=== PATIENT | male | born 1970 | race Caucasian/White ===

== ENCOUNTER 2016-10-14 16:20 | Observation (INO) | payer BC ==
--- NOTE | ~2016-10-14 | ST ---
Unit #: [id number] #: [id number] Patient: JEREMIAH VENEGAS [id number] [address] [place], [place] [address] [id number] I MR#: [id number] NAME: JEREMIAH VENEGAS : 1970 SEX: M STUDY DATE/TIME: UNIT: C5B ROOM: 559 STUDY DESCRIPTION: Stress Test Attending Physician: Abdiaziz Pedroza M.D. Primary Care Physician: Ebony Lara A.P.R.N. CARDIOLOGY REPORT EXAM Stress Test DESCRIPTION Baseline EKG - normal sinus rhythm with ventricular rate 84 beats/minute, left ventricular hypertrophy, left atrial abnormality. Patient walked on the treadmill for 11 minutes 30 seconds utilizing Mark protocol achieving a workload of 13.40 METs. 86% of maximum target heart rate achieved at 151 beats/minute with a maximum blood pressure response of 182/100 mmHg. EKG during the test was equivocal to baseline. No acute ischemic changes. The patient had no complaints of chest pain, palpitations or dizziness, had increased shortness of breath and fatigueness which resolved in recovery phase. IMPRESSION 1. Functional class III with workload of 13.40 METs. 2. Patient walked for 11 minutes 30 seconds achieving 86% of maximum target heart rate at 151 beats/minute with a hypertensive blood pressure response at 182/100 mmHg. 3. It was noted at the end of recovery phase patient's blood pressure decreased down to 149/90 mmHg. 4. The patient had no complaints of chest pain, palpitations or dizziness. Had increased shortness of breath and fatigueness which resolved in recovery phase. 5. EKG during the test was equivocal to baseline. No acute ischemic changes. 6. The patient had a good exercise tolerance. 7. Cardiolite was injected at maximum target heart rate. Radionuclide test pending. Please correlate with nuclear images. Dictated by... Letha MauroP.RTeresa for Renetta Kelley Unit #: [id number] #: [id number] Patient: JEREMIAH VENEGAS TD: 10/15/2016 13:23 JOB #: [id number] CARDIOLOGY REPORT Page 1 of 1 X Darlene Montes APRN CARDIOLOGY REPORT
--- NOTE | ~2016-10-14 | OR ---
Unit #: [id number] #: [id number] Patient: JEREMIAH VENEGAS [id number] [address] [place], [place] [address] [id number] I MR#: [id number] NAME: JEREMIAH VENEGAS ROOM: 55 Date of Procedure: 10/15/2016 Admission Date: 10/15/2016 Surgeon: Eugene Navas M.D. : 1970 Attending Physician: Abdiaziz Pedroza M.D. Primary Care Physician: Ebony Lara A.P.R.N. OPERATIVE REPORT PROCEDURE PERFORMED Esophagogastroduodenoscopy with biopsy. INDICATIONS FOR PROCEDURE The patient with atypical chest pain and epigastric pain, undergoing evaluation with upper endoscopy. MEDICATIONS Monitored anesthesia. POSTOPERATIVE FINDINGS 1. Small hiatal hernia. Mild chronic appearing gastritis, biopsies taken. 2. Normal duodenum and distal duodenum. PLAN 1. Follow up on the pathology report. 2. Continue PPI and reflux precautions. DESCRIPTION OF PROCEDURE The patient was explained of the procedure, risks, and benefits along with the risks and benefits of anesthesia. He was brought to the endoscopy room. Propofol anesthesia was given. Bite block was placed. The scope was passed down the mouth into the esophagus, stomach, duodenum, and distal duodenum. Findings as described. Biopsies taken. Gently, I pulled the scope out of the patient's mouth. He tolerated it well. No major complications were seen. Dictated by... Renetta Beck/brunilda TD: 10/15/2016 22:51 JOB #: [id number] CC: Soliseta/invision Please Delete Unit #: [id number] #: [id number] Patient: JEREMIAH VENEGAS OPERATIVE REPORT Page 1 of 1 X Eugene Navas MD X PROCEDURE OPERATIVE NOTE
--- NOTE | ~2016-10-14 | CT2 ---
[facility] A Service of [facility] RADIOLOGY TEXT RESULTS PATIENT: JEREMIAH VENEGAS LOCATION: [facility] : [birth year] UNIT #: [id number] AGE: [address]: Abdiaziz Pedroza MD SEX: M ORDER DR: [id number] [facility] [address] [facility]. [place], [place] [address] [id number] I MR#: [id number] Acc #: [id number] NAME: JEREMIAH VENEGAS : 1970 SEX: M STUDY DATE/TIME: 10/14/2016 20:34 UNIT: [facility] ROOM: [facility] STUDY DESCRIPTION: CT Abd and Pelv W Cont Attending Physician: Abdiaziz Pedroza M.D. Ordering Physician: Darek Torres D.O. Primary Care Physician: Ebony Lara A.P.R.N. MEDICAL IMAGING REPORT This report is preliminary unless electronic signature is present EXAM CT abdomen and pelvis with IV contrast. HISTORY Abdomen pain for 10 days. Low pelvic pain and left lower quadrant pain. TECHNIQUE This CT exam was performed with one or more of the following radiation dose reduction techniques: automatic exposure control, adjustment of mA and/or kV according to patient size, and iterative reconstruction. FINDINGS CT abdomen and pelvis was performed with IV contrast. CT ABDOMEN: The liver, gallbladder, spleen, pancreas, kidneys, and left adrenal gland are normal. 1.5 cm right adrenal adenoma. Normal caliber abdominal aorta. No bowel dilatation. No adenopathy. CT PELVIS: Normal appendix extending to the anterior right lower pelvis, adjacent to the distal right external iliac vessels. No bowel dilatation or inflammatory stranding or free fluid. Urinary bladder is normal. Bilateral spondylolysis at L5 with 2 mm anterior subluxation of L5 on S1. IMPRESSION 1. No acute findings in the abdomen or pelvis. 2. Normal appendix. 3. No urinary obstruction or bowel obstruction. 4. 1.5 cm right adrenal adenoma. 5. Incidental bilateral spondylolysis at L5 with minimal anterior [facility] A Service of [facility] RADIOLOGY TEXT RESULTS PATIENT: JEREMIAH VENEGAS LOCATION: [facility] 559-01 : [birth year] UNIT #: [id number] AGE: [address]: Abdiaziz Pedroza MD SEX: M ORDER DR: subluxation of L5 on S1. Dictated by... Richard Pichardo M.D. THIS IS AN ELECTRONICALLY VERIFIED REPORT Richard Pichardo M.D. at 10/15/2016 11:31 PM KYARA/vita TD: 10/15/2016 01:58 JOB #: [id number] MEDICAL IMAGING REPORT Page 1 of 1 COPY
--- NOTE | ~2016-10-14 | CR72 ---
[facility] A Service of [facility] RADIOLOGY TEXT RESULTS PATIENT: JEREMIAH VENEGAS LOCATION: [place] [address] : [birth year] UNIT #: [id number] AGE: [address]: Abdiaziz Pedroza MD SEX: M ORDER DR: [id number] [facility] [address] [place], [place] [address] [id number] I MR#: [id number] Acc #: [id number] NAME: JEREMIAH VENEGAS : 1970 SEX: M STUDY DATE/TIME: 10/14/2016 18:39 UNIT: CEDOF ROOM: 60403 STUDY DESCRIPTION: CR Chest Single View Portable Attending Physician: Abdiaziz Pedroza M.D. Ordering Physician: Darek Torres D.O. Primary Care Physician: Ebony Lara A.P.R.N. MEDICAL IMAGING REPORT This report is preliminary unless electronic signature is present EXAM Portable chest HISTORY Upper abdomen pain. Cough and shortness of air for 10 days. FINDINGS Cardiac size and pulmonary vascularity are normal. No airspace infiltrates or effusions. Mild right upper thoracic curve. IMPRESSION No acute findings. No active disease. Dictated by... Richard Pichardo M.D. THIS IS AN ELECTRONICALLY VERIFIED REPORT Richard Pichardo M.D. at 10/15/2016 11:29 PM DFL/anam TD: 10/15/2016 01:25 JOB #: [id number] MEDICAL IMAGING REPORT Page 1 of 1 COPY
--- NOTE | ~2016-10-14 | DS ---
Unit #: [id number] #: [id number] Patient: JEREMIAH VENEGAS [id number] [address] [place], [place] [address] [id number] I MR#: [id number] NAME: JEREMIAH VENEGAS ROOM: 559 Age: 46 Sex: M Admission Date: 10/15/2016 : 1970 Discharge Date: 10/16/2016 Attending Physician: Abdiaziz Pedroza M.D. Primary Care Physician: Ebony Lara A.P.R.N. DISCHARGE SUMMARY DISCHARGE DIAGNOSES 1. Gastritis. 2. Suspected coronary artery disease. 3. Abnormal Cardiolite scan. The patient is scheduled to have cardiac cath on Tuesday, October 20, with Dr. Caceres. CHIEF COMPLAINT/HISTORY OF PRESENT ILLNESS Presented with chest pain. Stress test was done and recommended to have a cardiac cath as an outpatient. He will follow, apparently stable on exam today. PHYSICAL EXAMINATION VITAL SIGNS: Temperature 98, pulse 67, respirations 12, blood pressure 130/70. NEUROLOGICAL: Awake, alert, oriented. No neuro deficit. HEENT: PERRLA. NECK: Supple. No JVD. CHEST: Bilateral air entry, bilateral mild rhonchi. GI: Nontender, soft. Bowel sounds positive. EXTREMITIES: No edema. SKIN: No rashes, no ulcers. LYMPHATIC: No lymphadenopathy. DIAGNOSTIC STUDIES Labs and imaging have been reviewed. DISCHARGE MEDICATIONS As per Med Rec. The patient will follow with Dr. Caceres on October 20 for cardiac catheterization. All the information has been relayed to the patient. Please see discharge Med Rec and hospital progress note for details. Dictated by... Renetta Rock/kayla TD: 10/17/2016 08:24 JOB #: [id number] Unit #: [id number] #: [id number] Patient: JEREMIAH VENEGAS DISCHARGE SUMMARY Page 1 of 1 X Lavinia Mortensen MD DISCHARGE SUMMARY
--- NOTE | ~2016-10-14 | CO ---
Unit #: [id number] #: [id number] Patient: JEREMIAH NOBLE [id number] [address] [place], [place] [address] [id number] I MR#: [id number] NAME: JEREMIAH NOBLE ROOM: 559 Age: 46 Sex: M Admission Date: 10/15/2016 : 1970 Attending Physician: Abdiaziz Pedroza M.D. Primary Care Physician: Ebony Lara A.P.R.N. CONSULTATION REPORT HISTORY OF PRESENT ILLNESS This is a 46-year-old white male, who denies diabetes mellitus, hypertension, hyperlipidemia, who has history of bipolar disorder, is on Zoloft and Seroquel, and also nicotine abuse, reformed alcohol use, came to the emergency room with lower abdominal pain that radiating up to the lower rib cage area. He describes it as sharp shooting at times and sometimes waxing and waning. On exam and interview palpating the area, it is tender to touch in the lower rib cage area. He denies any substernal chest pain in the neck, bilateral shoulders, or back pain, or jaw pain. He has not had any fever or chills. He denies any nausea, vomiting, or diarrhea; though, he does have some belching. He denies any palpitations. No dizziness, presyncope, or syncope. No paroxysmal nocturnal dyspnea or orthopnea. Cardiology was consulted to assist with evaluation and management. PAST MEDICAL HISTORY 1. Bipolar disorder. 2. Depression. 3. Nicotine abuse. 4. Stress test 2 years ago according to the patient, told was normal. 5. Reformed alcohol abuse. PAST SURGICAL HISTORY Left hand surgery. HOME MEDICATIONS Zoloft 100 mg p.o. at bedtime, Seroquel 100 mg p.o. at bedtime. ALLERGIES No known drug allergies. SOCIAL HISTORY The patient lives in apartment alone. 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 He follows closely with a psychiatrist for his bipolar disorder. He is down to smoking one pack of cigarettes a day. He had been smoking up to 2 packs a day. He has been smoking since age of 18. He used to drink heavily, but quit about 10 years ago. No illicit drug abuse. FAMILY HISTORY No known coronary artery disease in his immediate family members. REVIEW OF SYSTEMS Unit #: [id number] #: [id number] Patient: JEREMIAH NOBLE See details in HPI. PHYSICAL EXAMINATION GENERAL: Mr. Noble is a 46-year-old white male, in no acute respiratory distress. He is awake, alert, and oriented. VITAL SIGNS: Blood pressure is 127/56, heart rate 80, respirations 16, temperature 99, O2 saturations 97% on room air. NECK: Trachea midline. No thyromegaly or lymphadenopathy. Normal carotid upstrokes. No jugular venous distention. HEART: S1, S2. Regular rate and rhythm. No clicks, murmurs, or rubs. LUNGS: Diminished, otherwise clear. ABDOMEN: Soft with tender palpating especially in the lower rib cage area, upper quadrant areas. EXTREMITIES: Pedal pulses are palpable. No pedal edema. DIAGNOSTIC STUDIES LABORATORY RESULTS: Glucose is 93, BUN 13, creatinine 0.7, eGFR is 114. Sodium 134, potassium 3.9, chloride 107, CO2 of 18, calcium is 9.4, total protein 7.9, albumin 4.1, bilirubin total 0.4, AST is 18, ALT is 16, alkaline phosphatase is 58. WBC is 12.3, hemoglobin 16.7, hematocrit 50.0, and platelets is 375. Initial cardiac enzymes; CK-MB is less than 1.0. Troponin less than 0.05. CK total is 310, MB is 1.9, percentage of MB is 0.6, and troponin less than 0.03, CK total is 237, MB is 1.9, percentage of MB is 0.6, and troponin less than 0.03. INR is 1.0. D-dimer 387. Urinalysis is unremarkable. IMAGING STUDIES: Chest x-ray shows nothing acute. No active disease. CT of abdomen and pelvis shows nothing acute. No urinary obstruction or bowel obstruction. 1.5 cm right adrenal adenoma and some spondylosis. CARDIOVASCULAR STUDIES: EKG shows normal sinus rhythm with ventricular rate 73 beats per minute. Slow R-wave progression. Slightly prolonged QT. IMPRESSION 1. Abdominal pain. 2. Atypical lower chest pain. 3. Bipolar disorder. 4. Nicotine abuse. 5. Reformed alcohol abuse. PLAN 1. Cardiology consult to assist with evaluation and management. 2. On interview and exam, the symptoms appear more gastrointestinal or musculoskeletal in nature. According to the patient, he has been lifting over 50 pounds boxes at work and he may be showing some musculoskeletal tenderness since that time. 3. The patient's heart rate and blood pressure are stable. 4. On exam, there is no signs or symptoms of acute congestive heart failure. 5. Gastroenterology, Dr. Navas has seen the patient and plans are for an esophagogastroduodenoscopy today. Started on Protonix. 6. After Dr. Caceres examined and reviewed his records, he feels that even though his symptoms are more atypical in nature, with his long history of drinking and having nicotine abuse, we would go ahead and do an exercise Cardiolite stress test for further evaluation. 7. We will evaluate his ejection fraction on the stress test. If it is abnormal, may need a 2D echo since he has history of alcohol use. Unit #: [id number] #: [id number] Patient: JEREMIAH NOBLE 8. Further recommendations pending further testing. 9. I encouraged the patient to completely quit smoking. Smoking cessation information provided to the patient. I also encouraged the patient no alcohol use. He says he still drinks occasional beer. Thank you very much for allowing us to assist in the care. Further recommendations pending per Dr. Caceres. Dictated by... Letha MauroPPipoRTeresa for Renetta Newby/brunilda TD: 10/16/2016 06:37 JOB #: [id number] CONSULTATION REPORT Page 1 of 1 X Darlene Montes APRN X CONSULTATION REPORT
--- NOTE | ~2016-10-14 | TH ---
Unit #: [id number] #: [id number] Patient: JEREMIAH VENEGAS [id number] [address] [address] [id number] I MR#: [id number] NAME: JEREMIAH VENEGAS : 1970 SEX: M STUDY DATE/TIME: 10/15/2016 UNIT: C5B ROOM: 559 STUDY DESCRIPTION: Exercise stress test - Nuclear Attending Physician: Abdiaziz Pedroza M.D. Primary Care Physician: Ebony Lara A.P.R.N. CARDIOLOGY REPORT PROCEDURE PERFORMED Exercise Cardiolite stress test - Nuclear portion. PROCEDURE Using technetium 99m-labeled Cardiolite, rest and stress SPECT images were obtained. Multiple SPECT images were obtained in various views, including horizontal and vertical long axis and short axis views of the left ventricle. Images were obtained by gated SPECT method. The patient was administered 8.88 mCi of Cardiolite at rest. The patient was administered 28.4 mCi of Cardiolite at peak exercise. Total exercise time is 11 minutes and 30 seconds. On the stress images, there is a medium sized area of moderately decreased tracer uptake activity involving the inferior and the inferoseptal wall. The rest images show a normal perfusion. Comparing the rest and stress images, there is suspicion for a medium sized area of stress-induced ischemia involving the inferior and the inferoseptal wall of the left ventricle. The left ventricular ejection fraction is calculated to be 59%. There is no focal wall motion abnormality seen. The left ventricular cavity is mildly dilated both at rest and post stress. CONCLUSION 1. There is suspicion for a medium sized area of stress-induced ischemia involving the inferior and the inferoseptal wall of the left ventricle. 2. The left ventricular ejection fraction is calculated to be 59%. 3. There is no focal wall motion abnormality seen. 4. Though the patient exercised for 10 minutes and 30 seconds with no symptoms, his nuclear portion of the test is suggestive of coronary artery disease. Clinical correlation is requested. Dictated by... Renetta Kelley TD: 10/15/2016 15:51 JOB #: [id number] Unit #: [id number] #: [id number] Patient: JEREMIAH VENEGAS CARDIOLOGY REPORT Page 1 of 1 X Vera Maldonado MD <ELECTRONICALLY SIGNED> 12/25/16 4063 CARDIOLOGY REPORT
--- NOTE | ~2016-10-14 | EKG ---
PATIENT: JEREMIAH VENEGAS UNIT #: [id number] Ventricular Rate: 73 BPM Atrial Rate: 73 BPM P-R Interval: 122 ms QRS Duration: 84 ms Q-T Interval: 440 ms QTC Calculation(Bezet): 484 ms P Bellamy: 73 degrees Calculated R Bellamy: 75 degrees Calculated T Bellamy: 72 degrees Diagnosis Line: Normal sinus rhythm with sinus arrhythmia Diagnosis Line: Prolonged QT Early repolarization Diagnosis Line: Abnormal ECG Diagnosis Line: When compared with ECG of 24-DEC-2015 19:07, Diagnosis Line: No significant change was found Diagnosis Line: Confirmed by AYAN REESE MD ([id number]) on 10/15/2016 Diagnosis Line: 8:07:30 PM INTERPRETING MD: HUGH LORENZO
--- NOTE | ~2016-10-14 | CO ---
Unit #: [id number] #: [id number] Patient: JEREMIAH VENEGAS [id number] [address] [place], [place] [address] [id number] I MR#: [id number] NAME: JEREMIAH VENEGAS ROOM: 559 Age: 46 Sex: M Admission Date: 10/15/2016 : 1970 Attending Physician: Abdiaziz Pedroza M.D. Primary Care Physician: Ebony Lara A.P.R.N. CONSULTATION REPORT REASON FOR CONSULTATION Atypical chest pain. HISTORY OF PRESENT ILLNESS The patient states he was in usual state of health until last Tuesday, where he began to have intermittent upper abdominal and chest pain, which felt like a gas fullness or pressure. He tried taking jagh-oic-rmpwpha Gas-X without relief and subsequently presented to the ER yesterday for further workup and evaluation. CT in the ER was negative for any acute findings. Troponin thus far has been negative as well. The patient denies any nausea, vomiting, difficulty swallowing, really asymptomatic besides this chest pain, pressure. PAST MEDICAL HISTORY Notable for bipolar; skin cancer; arthritis; family history of colon cancer, his father at the young age of colon cancer and previous surgery on his thumb. ALLERGIES None known. HOME MEDICATIONS Zoloft and Seroquel. SOCIAL HISTORY The patient denies alcohol or illicit drugs; however, he is a smoker. FAMILY HISTORY Reviewed. Notable for father with colon cancer. REVIEW OF SYSTEMS A complete 10-point review of systems was completed and negative except as mentioned in the HPI. PHYSICAL EXAMINATION GENERAL: The patient is a very pleasant 46-year-old male, currently in no acute distress. VITAL SIGNS: Temperature is 99, pulse is 81, respirations 16, blood pressure is 127/56. HEENT: PERRLA. NECK: Supple. CARDIAC: S1, S2. LUNGS: Clear to auscultation. ABDOMEN: Soft, rounded, mild epigastric tenderness. Positive bowel Unit #: [id number] #: [id number] Patient: JEREMIAH VENEGAS sounds. NEUROLOGIC: The patient is alert, awake, and oriented x3. DIAGNOSTIC STUDIES IMAGING STUDIES: CT of abdomen and pelvis was completed. No acute findings were noted. LABORATORY RESULTS: Chemistry also negative. Again, troponin was negative. White count 12.3, hemoglobin 16.7, hematocrit 50, platelets are 375. ASSESSMENT AND PLAN 1. Atypical chest pain, epigastric pain. We will start PPI. We will plan esophagogastroduodenoscopy today. Continue n.p.o. status. Further recommendations to follow. 2. Family history of colon cancer. The patient states he is due for his colon screening this year. We will plan that as an outpatient. Thank you for this interesting consult. We will continue to follow along. Dictated by... Tatianna De La Cruz A.P.R.N. for Renetta Beck/brunilda TD: 10/16/2016 04:47 JOB #: [id number] CONSULTATION REPORT Page 1 of 1 X X CONSULTATION REPORT
--- NOTE | ~2016-10-14 | HP ---
Unit #: [id number] #: [id number] Patient: JEREMIAH NOBLE [id number] [address] [place], [place] [address] [id number] I MR#: [id number] NAME: JEREMIAH NOBLE ROOM: 559 Age: 46 Sex: M Admission Date: 10/15/2016 : 1970 Attending Physician: Abdiaziz Pedroza M.D. Primary Care Physician: Ebony Lara A.P.R.N. HISTORY AND PHYSICAL ADMISSION DIAGNOSES 1. Atypical chest pain. 2. Bipolar disorder. 3. Depression. 4. Leukocytosis. HISTORY OF PRESENT ILLNESS Mr. Noble is a 46-year-old gentleman, who presents to the emergency room with complaints of heavy sensation in substernal/epigastric area for last four or five days which is intermittent in nature. Does not radiate to any other parts of the body. He denies any shortness of air. Denies any fevers, chills. He denies any diaphoresis, nausea, vomiting, diarrhea, or abdominal pain. Denies any headache, dizziness, or syncopal episodes. REVIEW OF SYSTEMS A 12-point review of systems on this patient basically negative except as above. PAST MEDICAL HISTORY 1. Bipolar disorder. 2. Depression. PAST SURGICAL HISTORY None. HOME MEDICATIONS He was taking Zoloft and Seroquel. ALLERGIES No known drug allergies. SOCIAL HISTORY He is a heavy smoker. Drinks alcohol socially now. Denies any illicit drugs. FAMILY HISTORY Unremarkable. PHYSICAL EXAMINATION GENERAL: Patient is a 46-year-old gentleman in no acute distress. VITAL SIGNS: BP 133/93, heart rate 74, respirations 18, temperature 99.7. HEENT: Head is atraumatic. Pupils equal, round, and reactive to light and accommodation. Extraocular muscles intact. Oropharynx clear. Unit #: [id number] #: [id number] Patient: JREEMIAH NOBLE NECK: Supple. No masses. No JVD. No bruits. CHEST: Diminished bilaterally at the bases but generally clear. CARDIOVASCULAR: S1, S2. No murmurs. ABDOMEN: Soft, nontender, nondistended. EXTREMITIES: Lower extremities: Without any cyanosis, clubbing, or edema. NEUROLOGIC: The patient is grossly intact. No focal deficits. DIAGNOSTIC STUDIES LABORATORY: CBC, BMP, and coagulation panel including the cardiac enzymes unremarkable except white count of 12,000. IMAGING: Chest x-ray negative. CT abdomen shows some adrenal adenoma, otherwise unremarkable. CARDIOVASCULAR: Preliminary results of the stress test which was done per cardiology shows a small defect. A full report is currently unavailable yet. ASSESSMENT AND PLAN 1. Atypical chest pain, status post cardiology evaluation. Followup on full stress test report. May need the cardiac cath. As a workup for his atypical chest pain/epigastric chest pain, patient also is going to have an esophagogastroduodenoscopy per GI. 2. Depression: Continue home meds. 3. Bipolar disorder: Continue home meds. 4. Gastrointestinal and deep venous thrombosis prophylaxis: Continue proton pump inhibitor and sequential compression devices. 5. Leukocytosis: Will check procalcitonin level, follow up on CBC in a.m. Dictated by Jonel Ramirez M.D. OC/jones TD: 10/15/2016 15:40 JOB #: [id number] HISTORY AND PHYSICAL Page 1 of 1 X Jonel Ramirez MD HISTORY AND PHYSICAL
[~2016-10-14 16:20] MED LIST: ATARAX; CELEXA; DIAZEPAM10 MG; ENBREL50 MG/ML; ENBREL50 MG/ML PO; QUETIAPINE FUM100 MG; ROBAXIN 750750 MG PO; SEROQUEL; SERTRALINE HCL100 M1; VOLTAREN75 MG PO; ZYPREXA
[2016-10-14 17:03] LABS: BASOPHIL# 0.1 X10e3 (0-0.3); BASOPHIL% 0.9 % (0-2.5); EOSINOPHIL# 0.3 X10e3 (0-0.7); EOSINOPHIL% 2.4 % (0.0-7.0); HEMOGLOBIN 16.7 gm/dL (13.0-16.0); LYMPHOCYTE% 24.4 % (17.0-45.0); MEAN CELL VOLUME 94.7 FL (83-96); MEAN CORPUSCULAR HEMOGLOBIN 31.6 PG (28-34); MEAN CORPUSCULAR HGB CONC 33.3 g/dL (30-36); MEAN PLATELET VOLUME 7.3 FL (6.5-11.5); MONOCYTE# 1.2 X10e3 (0-1.0); MONOCYTE% 9.9 % (3.0-12.0); NEUTROPHIL# 7.7 X10e3 (1.5-7.1); NEUTROPHIL% 62.4 % (40-75); PLATELET COUNT 375 X10e3 (140-420); RED BLOOD COUNT 5.28 X10e (3.90-5.60); RED CELL DISTRIBUTION WIDTH 12.9 % (11.0-15.5); WHITE BLOOD COUNT 12.3 X10e3 (4.0-10.5)
[2016-10-14 17:17] LABS: DIFF IND NO
[2016-10-14 17:30] LABS: ALBUMIN SERUM 4.1 g/dL (3.5-5.0); BILIRUBIN, DIRECT 0.1 mg/dL (0.0-0.2); BILIRUBIN,INDIRECT 0.3 mg/dL (0.0-0.9); BILIRUBIN,TOTAL 0.4 mg/dL (0.2-2.0); BUN/CREATININE RATIO 18.57; CALCIUM SERUM 9.4 mg/dL (8.4-10.2); CREATININE SERUM 0.7 mg/dL (0.6-1.4); POTASSIUM 3.9 mmol/L (3.5-5.1); PROTEIN TOTAL SERUM 7.9 g/dL (6.0-8.3)
[2016-10-14 18:22] LABS: URINE SOURCE CLEAN CATCH
[2016-10-14 18:31] LABS: URINE APPEARANCE CLEAR; URINE BILIRUBIN NEG (NEG); URINE BLOOD NEG (NEG); URINE COLOR YELLOW; URINE GLUCOSE NEG (NEG); URINE KETONE NEG (NEG); URINE LEUKOCYTE ESTERASE NEG (NEG); URINE NITRATE NEG (NEG); URINE PROTEIN NEG (NEG); URINE SPECIFIC GRAVITY 1.018 (1.003-1.035)
[2016-10-14 18:41] LABS: CULTURE INDICATED? NO
[2016-10-14 18:51] LABS: PARTIAL THROMBOPLASTIN TIME 31.7 SECONDS (23.5-31.3); PROTHROMBIN TIME (PATIENT) 10.4 SECONDS (9.6-11.5)
[2016-10-14 19:04] LABS: POC - CKMB <1.0 ng/mL (0.0-7.9); POC - TROPONIN <0.05 ng/mL (<=0.05)
[2016-10-14 21:28] LABS: ARTERIAL BLD GAS O2 SATURATION 83.9 % (90.0-100.0); ARTERIAL BLOOD GAS CARBOXY HB 2.6 %sat (0.0-9.0); ARTERIAL BLOOD GAS HCO3 19.5 mmol/L; ARTERIAL BLOOD GAS MET HB 0.8 %sat (0.0-2.0); ARTERIAL BLOOD GAS PCO2 30.8 mmHg (35.0-45.0); ARTERIAL BLOOD GAS pH 7.411 (7.350-7.450)
[2016-10-14 21:34] LABS: ARTERIAL BLOOD GAS ART SITE LEFT BRACHIAL; ARTERIAL BLOOD GAS PO2 51.9 mmHg (80.0-100); ARTERIAL DRAW? YES
[2016-10-14] MEDS ORDERED: ZOLOFT100 MG PO (22:37)
[2016-10-14] MEDS ORDERED: SEROQUEL100 MG PO (22:38)
[2016-10-14 23:08] LABS: ARTERIAL BLD GAS O2 SATURATION 95.6 % (90.0-100.0); ARTERIAL BLOOD GAS CARBOXY HB 1.8 %sat (0.0-9.0); ARTERIAL BLOOD GAS MET HB 0.7 %sat (0.0-2.0); ARTERIAL BLOOD GAS PCO2 31.3 mmHg (35.0-45.0); ARTERIAL BLOOD GAS pH 7.393 (7.350-7.450)
[2016-10-14 23:09] LABS: ARTERIAL BLOOD GAS ALLEN TEST NORMAL; ARTERIAL BLOOD GAS ART SITE RIGHT RADIAL; ARTERIAL DRAW? YES
[2016-10-15 02:46] LABS: %MB 0.6 % (0.0-4.0); MB 1.9 ng/ml
[2016-10-15 11:47] LABS: %MB 0.6 % (0.0-4.0); MB 1.5 ng/ml
[2016-10-15 12:13] LABS: CHOLESTEROL 171 mg/dL (0-200); HDL CHOLESTEROL 38 mg/dL (29-75); LDL CHOLESTEROL 113 mg/dL (-130); LDL/HDL RATIO 3 RATIO (0-4); TRIGLYCERIDES 99 mg/dL (10-160)
[2016-10-15 14:46] LABS: %MB 0.6 % (0.0-4.0); MB 1.3 ng/ml
[2016-10-16 06:55] LABS: HEMOGLOBIN 16.9 gm/dL (13.0-16.0); MEAN CELL VOLUME 94.5 FL (83-96); MEAN CORPUSCULAR HEMOGLOBIN 31.2 PG (28-34); MEAN PLATELET VOLUME 7.1 FL (6.5-11.5); RED BLOOD COUNT 5.4 X10e (3.90-5.60); RED CELL DISTRIBUTION WIDTH 12.7 % (11.0-15.5)
[2016-10-16] MEDS ORDERED: TENORMIN25 MG PO (17:09)
[2016-10-16] MEDS ORDERED: LIPITOR20 MG PO (17:10)
[2016-10-16] MEDS ORDERED: IMDUR-ER30 M1 PO (17:11)
[2016-10-16] MEDS ORDERED: BAYER CHEWABLE81 MG PO (17:11)
[2016-10-20] MEDS ORDERED: FAMOTIDINE PO (11:17)
[2016-11-24] MEDS ORDERED: PROTONIX40 M1 PO (09:38)
[2016-12-15] MEDS ORDERED: ZOFRAN ODT4 M1 PO (09:09)
[2016-12-15] MEDS ORDERED: VALIUM10 MG PO (09:09)
[2016-12-15] MEDS ORDERED: ENDOCET 5-3251 EACH PO (09:10)
== END 2016-10-16 19:30 | disposition home or self-care (01) | DRG 392 ==
LOC: CED 16:20 → CEDOF 10-15 → CED 10-15 00:14 → C5B 10-15 01:26 → CEDOF 10-15 01:26 → C5B 10-16 19:30
PROVIDERS: Emergency Medicine; Internal Medicine
DX: K29.50 Unspecified chronic gastritis without bleeding (principal); R07.89 Other chest pain; K44.9 Diaphragmatic hernia without obstruction or gangrene; Z80.0 Family history of malignant neoplasm of digestive organs; F31.9 Bipolar disorder, unspecified; F32.9 Major depressive disorder, single episode, unspecified; D72.829 Elevated white blood cell count, unspecified; Z23 Encounter for immunization; F17.200 Nicotine dependence, unspecified, uncomplicated; D35.01 Benign neoplasm of right adrenal gland; M43.06 Spondylolysis, lumbar region
CPT/HCPCS: 36415; 36600; 71010; 74177; 78452; 80048; 80061; 80076; 81003; 82308; 82550; 82553; 82803; 83690; 84443; 84484; 85025; 85027; 85379; 85610; 85730; 88305; 88312; 90732; 93005; 93017; 94760; 96361; 96372; 96374; 96375; 96376; 99285; A9500; C9113; G0009; G0378; J0500; Q9967

== ENCOUNTER → 2016-10-20 | Outpatient (CLI) | payer BC ==
[~2016-10-20] MED LIST changes: +BAYER CHEWABLE81 MG PO; +ENDOCET 5-3251 EACH PO; +FAMOTIDINE PO; +IMDUR-ER30 M1 PO; +LIPITOR20 MG PO; +PERCOCET10 PO; +PROTONIX PO; +PROTONIX40 M1 PO; +SEROQUEL100 MG PO; +TENORMIN25 MG PO; +VALIUM10 MG PO; +ZOFRAN ODT4 M1 PO; +ZOFRAN PO; +ZOLOFT100 MG PO
--- NOTE | ~2016-10-20 | EKG ---
PATIENT: JEREMIAH VENEGAS UNIT #: [id number] Ventricular Rate: 65 BPM Atrial Rate: 65 BPM P-R Interval: 116 ms QRS Duration: 86 ms Q-T Interval: 452 ms QTC Calculation(Bezet): 470 ms P Royal: 77 degrees Calculated R Royal: 71 degrees Calculated T Royal: 73 degrees Diagnosis Line: Normal sinus rhythm Diagnosis Line: Normal ECG Diagnosis Line: When compared with ECG of 14-OCT-2016 20:59, Diagnosis Line: No significant change was found Diagnosis Line: Confirmed by MICHAEL POZO MD ([id number]) on 10/20/2016 Diagnosis Line: 11:06:57 PM INTERPRETING MD: NOHELIA LORENZO
[2016-10-20 11:17] LABS: HEMATOCRIT 50.7 % (38.0-50.0); HEMOGLOBIN 16.9 gm/dL (13.0-16.0); MEAN CELL VOLUME 93.6 FL (83-96); MEAN CORPUSCULAR HEMOGLOBIN 31.3 PG (28-34); MEAN CORPUSCULAR HGB CONC 33.4 g/dL (30-36); MEAN PLATELET VOLUME 7.2 FL (6.5-11.5); RED BLOOD COUNT 5.42 X10e (3.90-5.60); RED CELL DISTRIBUTION WIDTH 12.9 % (11.0-15.5); WHITE BLOOD COUNT 14.6 X10e3 (4.0-10.5)
[2016-10-20 11:38] LABS: PARTIAL THROMBOPLASTIN TIME 31.9 SECONDS (23.5-31.3); PROTHROMBIN TIME (PATIENT) 10.6 SECONDS (9.6-11.5)
[2016-10-20 11:41] LABS: BUN/CREATININE RATIO 13.33; CALCIUM SERUM 9.4 mg/dL (8.4-10.2); CREATININE SERUM 0.6 mg/dL (0.6-1.4); GLOM FILT RATE Estimated 121.5 mL/min (>60); POTASSIUM 3.8 mmol/L (3.5-5.1)
== END | disposition home or self-care (01) ==
LOC: CCVL 10:32
PROVIDERS: Internal Medicine Cardiovascular Disease
DX: R07.9 Chest pain, unspecified (principal); R94.39 Abnormal result of other cardiovascular function study
CPT/HCPCS: 36415; 80048; 85027; 85610; 85730; 93005; C1769; C1887; C1894; J1644; J2250; J3010

== ENCOUNTER → 2016-11-17 | Outpatient (CLI) | payer BC ==
--- NOTE | ~2016-11-17 | CT2 ---
[facility] A Service of [facility] & [facility] RADIOLOGY TEXT RESULTS PATIENT: JEREMIAH VENEGAS LOCATION: [facility] : 72 UNIT #: [id number] AGE: [address]: Reynold Erwin MD SEX: M ORDER DR: [id number] [facility] [address] [facility]. [place], [place] [address] [id number] O MR#: [id number] [facility] #: [id number] NAME: JEREMIAH VENEGAS : 1970 SEX: M STUDY DATE/TIME: 11/17/2016 14:41 UNIT: [facility] ROOM: STUDY DESCRIPTION: CT Abd and Pelv W Cont Attending Physician: Reynold Erwin M.D. Referring Physician: Reynold Erwin M.D. Ordering Physician: Reynold Erwin M.D. Primary Care Physician: Ebony Lara A.P.R.N. MEDICAL IMAGING REPORT This report is preliminary unless electronic signature is present EXAM CT abdomen and pelvis. INDICATION Left lower quadrant abdominal pain and constipation for [address] of the abdomen and pelvis with p.o. and IV contrast (100 mL Isovue-370 IV contrast). Coronal and sagittal reconstructions were obtained. This CT exam was performed with one or more of the following radiation dose reduction techniques: automatic exposure control, adjustment of mA and/or kV according to patient size, and iterative reconstruction. COMPARISON CT abdomen and pelvis, 10/14/2016. FINDINGS ABDOMEN: The patient has bilateral adrenal masses. The right adrenal mass measures 4.8 cm. This mass previously measured 1.5 cm and was low attenuation, thought to be an adrenal adenoma. A left adrenal mass measures 3.7 cm. There is no focal abnormality in the liver. The gallbladder, pancreas, and spleen are within normal limits. There is a new low attenuation mass in the superior pole right kidney measuring 0.8 cm. There is a 1.0 cm lesion in the inferior pole right kidney. These lesions were not previously identified. The bowel is not dilated. There is no enlarged retroperitoneal or mesenteric lymph nodes. The abdominal aorta is nonaneurysmal, however, it is small in caliber with the aorta measuring 1.1 cm. The iliac vessels are small measuring 0.6 cm on the left and 0.6 cm on the right. There is STS. [facility] A Service of [facility] & [facility] RADIOLOGY TEXT RESULTS PATIENT: JEREMIAH VENEGAS LOCATION: [facility] : 72 UNIT #: [id number] AGE: [address]: Reynold Erwin MD SEX: M ORDER DR: moderate atherosclerotic disease of the iliac vessels. PELVIS: There is an abnormal cystic mass with peripheral enhancement in the region of the anterior inferior iliac spine. This is centralized within the left oblique musculature. This measures 3.9 x 1.9 x 2.4 cm. There is a second intramuscular mass associated with the adductor muscle group just above the lesser trochanter, measuring 2.8 x 2.1 x 2.8 cm. IMPRESSION 1. Development of necrotic or cystic lesions within both adrenal glands, the left external oblique muscle (near the anterior inferior iliac spine) and in the right abductor muscle group (near the right lesser trochanter). This is concerning for a malignant/metastatic process. Consider an ultrasound-guided biopsy of the palpable lesion in the left external oblique muscle. 2. Two small subcentimeter lesions in the right kidney have developed since the prior study. Given the overall appearance, this is concerning for metastatic disease as well, however, the small size limits evaluation. 3. Unexpected findings were called to Dr. Reynold Erwin at 1610 on 11/17/2016. Dictated by... Abiodun Strong M.D. THIS IS AN ELECTRONICALLY VERIFIED REPORT Abiodun Strong M.D. at 11/17/2016 6:42 PM MARKY/nicci TD: 11/17/2016 16:19 JOB #: [id number] MEDICAL IMAGING REPORT Page 1 of 1 COPY
== END | disposition home or self-care (01) ==
LOC: CCAT 13:25
DX: R19.09 Other intra-abdominal and pelvic swelling, mass and lump (principal); R22.2 Localized swelling, mass and lump, trunk; E27.8 Other specified disorders of adrenal gland; N28.89 Other specified disorders of kidney and ureter
CPT/HCPCS: 74177; Q9967

== ENCOUNTER → 2016-11-24 | Outpatient (CLI) | payer BC ==
--- NOTE | ~2016-11-24 | US147 ---
[facility] A Service of [facility] RADIOLOGY TEXT RESULTS PATIENT: JEREMIAH NOBLE [facility] 72 UNIT #: [id number] AGE: [address]: Reynold Erwin MD SEX: M ORDER DR: [id number] [facility] [address] [facility]. [place], [place] [address] [id number] O MR#: [id number] Acc #: [id number] NAME: JEREMIAH NOBLE : 1970 SEX: M STUDY DATE/TIME: 11/24/2016 10:33 UNIT: [facility] ROOM: STUDY DESCRIPTION: US Biopsy Guide Attending Physician: Reynold Erwin M.D. Referring Physician: Reynold Erwin M.D. Ordering Physician: Reynold Erwin M.D. Primary Care Physician: Ebony Lara A.P.R.N. MEDICAL IMAGING REPORT This report is preliminary unless electronic signature is present EXAM Ultrasound guided left external iliac chain node biopsy INDICATIONS Mr. Noble is a 46-year-old gentleman who presented to Dr. Erwin with complaints of painful nodule on the left lower quadrant. He subsequently underwent a CT scan of the abdomen and pelvis, which showed a necrotic node within the area of concern. He has been referred for biopsy. PROCEDURE The risks, benefits, and alternatives to the procedure were explained to the patient, and signed informed consent was obtained. He was placed supine on the stretcher. The patient was prepped and draped in the usual sterile fashion. Time-out was performed as per protocol. The ultrasound probe was covered with sterile probe cover sterile gel was applied. Skin and subcutaneous tissues were anesthetized with buffered lidocaine and an 18-gauge BioPince biopsy gun was advanced into the area of concern. A core sample was obtained, which showed somewhat scant material. I subsequently advanced an 18-gauge needle into the lesion and aspirated some of the fluid, which will be sent for cytology. Three additional passes were made through the node and specimens were placed in both formalin and Hanks material. Manual pressure was then applied until hemostasis was obtained. Patient tolerated the procedure well and there were no immediate complications. Light sedation was provided to the patient. I supervised the IVR nurse and monitored the patient's vital signs for a total of 15 minutes [id number] time. IMPRESSION Technically successful core biopsy and aspiration of the patient's left external iliac node. Ultrasound was used during this procedure and permanent images were saved. Dictated by... [facility] A Service of [facility] RADIOLOGY TEXT RESULTS PATIENT: JEREMIAH NOBLE [facility] [id number] : 72 UNIT #: [id number] AGE: [address]: Reynold Erwin MD SEX: M ORDER DR: Chen Bush M.D. THIS IS AN ELECTRONICALLY VERIFIED REPORT Chen Bush M.D. at 11/25/2016 4:41 PM AFF/to TD: 11/25/2016 12:44 JOB #: [id number] MEDICAL IMAGING REPORT Page 1 of 1 COPY
== END | disposition home or self-care (01) ==
LOC: CIVR 08:10 → CLAB 08:10 → CIVR 10:00
DX: C96.9 Malignant neoplasm of lymphoid, hematopoietic and related tissue, unspecified (principal)
CPT/HCPCS: 36415; 76942; 85027; 85610; 85730; 88108; 88305; 88342; J2250; J3010

== ENCOUNTER → 2016-12-15 | Outpatient (CLI) | payer BC ==
[2016-12-15 09:01] LABS: HEMATOCRIT 42.1 % (38.0-50.0); HEMOGLOBIN 13.9 gm/dL (13.0-16.0); MEAN CELL VOLUME 87.2 FL (83-96); MEAN CORPUSCULAR HEMOGLOBIN 28.7 PG (28-34); MEAN PLATELET VOLUME 6.6 FL (6.5-11.5); RED BLOOD COUNT 4.83 X10e (3.90-5.60); RED CELL DISTRIBUTION WIDTH 13.4 % (11.0-15.5); WHITE BLOOD COUNT 17.5 X10e3 (4.0-10.5)
[2016-12-15 09:11] LABS: INR 1.2; PARTIAL THROMBOPLASTIN TIME 32.3 SECONDS (23.5-31.3)
== END | disposition home or self-care (01) ==
LOC: CIVR 08:31
PROVIDERS: Internal Medicine Medical Oncology
PROC: 05HM33Z Insertion of Infusion Device into Right Internal Jugular Vein, Percutaneous Approach (ICD-10-PCS; principal; 2016-12-15)
DX: C00-D49 Neoplasms (principal); Z45.2 Encounter for adjustment and management of vascular access device
CPT/HCPCS: 36415; 76937; 77001; 85027; 85610; 85730; C1788; J0690; J1642; J2250; J3010

== ENCOUNTER 2017-01-01 09:52 | Emergency (ER) | payer BC ==
[~2017-01-01] VITALS: Ht 175.3 cm; Wt 51.7 kg
--- NOTE | ~2017-01-01 | CT4 ---
[facility] A Service of [facility] & [facility] RADIOLOGY TEXT RESULTS PATIENT: JEREMIAH VENEGAS LOCATION: [facility] : 72 UNIT #: [id number] AGE: [address]: Casey Garcia MD SEX: M ORDER DR: [id number] [facility] [address] [place], [place] [address] [id number] E MR#: [id number] Acc #: [id number] NAME: JEREMIAH VENEGAS : 1970 SEX: M STUDY DATE/TIME: 01/01/2017 12:39 UNIT: [facility] ROOM: STUDY DESCRIPTION: CT Abd and Pelv Wo Cont Attending Physician: Casey Garcia M.D. Ordering Physician: Casey Garcia M.D. Primary Care Physician: Ebony Lara A.P.R.N. MEDICAL IMAGING REPORT This report is preliminary unless electronic signature is present EXAM CT abdomen and pelvis without contrast HISTORY Lower abdomen pain constipation for 1 week. Chemotherapy treatments x2. COMPARISON 11/17/2016 TECHNIQUE Axial 3 mm images were obtained through the abdomen and pelvis without IV or oral contrast. This CT exam was performed with one or more of the following radiation dose reduction techniques: automatic control, adjustment of mA and/or kV according to patient size, and iterative reconstruction. FINDINGS Lung bases are clear. Patient has very little body fat. The liver, spleen, pancreas, and kidneys are normal in appearance. There is a right adrenal mass measuring about 7 x 5.5 cm and a left adrenal mass measuring about 5.7 x 4.0 cm. These measurements are on the axial images. Both masses are larger than on 11/17/2016. The aorta is normal in size. The bowel is normal. The bladder is distended. There is a low density lesion in the soft tissues of the anterior left pelvis. This appears somewhat cystic on this CT that measures 6.0 x 5.3 x 5.7 cm in size and has more than doubled in size since 11/17/2016 so it is presumably a metastatic deposit. There is a low density area medial to the left hip joint that has also increased significantly in size. This seems to be destroying the cortex which is a new finding. The abnormality is difficult to measure without contrast but it is at least 4 cm in diameter. IMPRESSION [facility] A Service of [facility] RADIOLOGY TEXT RESULTS PATIENT: JEREMIAH VENEGAS LOCATION: [facility] : 72 UNIT #: [id number] AGE: [address]: Casey Garcia MD SEX: M ORDER DR: 1. This patient has some type of malignancy that has been previously worked up. Today's study shows that the bilateral adrenal masses have significantly increased in size since 11/17/2016. There is also an abdominal wall mass in the left side of the pelvis anteriorly that is more than doubled in size and it is very low in density. There is also a mass medial to the right femoral neck and it has more than doubled in size and is now eroding some of the cortical bone adjacent to it. 2. Patient has very little body fat in a study without contrast is limited by that factor. 3. The bladder is distended. Dictated by... Oh Espinosa M.D. THIS IS AN ELECTRONICALLY VERIFIED REPORT Oh Espinosa M.D. at 01/02/2017 9:36 PM CAMPOS/anam TD: 01/02/2017 03:56 JOB #: [id number] MEDICAL IMAGING REPORT Page 1 of 1 COPY
[~2017-01-01 09:52] MED LIST changes: -PERCOCET10 PO; -PROTONIX PO; -ZOFRAN PO
[2017-01-01 11:01] LABS: BASOPHIL% 0.5 % (0-2.5); EOSINOPHIL% 0.2 % (0.0-7.0); HEMATOCRIT 28.6 % (38.0-50.0); HEMOGLOBIN 9.6 gm/dL (13.0-16.0); LYMPHOCYTE# 1.8 X10e3 (1.0-3.5); LYMPHOCYTE% 23.5 % (17.0-45.0); MEAN CELL VOLUME 82.5 FL (83-96); MEAN CORPUSCULAR HEMOGLOBIN 27.7 PG (28-34); MEAN CORPUSCULAR HGB CONC 33.6 g/dL (30-36); MEAN PLATELET VOLUME 6.5 FL (6.5-11.5); MONOCYTE# 0.7 X10e3 (0-1.0); MONOCYTE% 9.7 % (3.0-12.0); NEUTROPHIL% 66.1 % (40-75); PLATELET COUNT 279 X10e3 (140-420); RED BLOOD COUNT 3.47 X10e (3.90-5.60); RED CELL DISTRIBUTION WIDTH 14.2 % (11.0-15.5); WHITE BLOOD COUNT 7.5 X10e3 (4.0-10.5)
[2017-01-01 11:13] LABS: DIFF IND NO
[2017-01-01 11:39] LABS: ALBUMIN SERUM 2.6 g/dL (3.5-5.0); BILIRUBIN, DIRECT 0.2 mg/dL (0.0-0.2); BILIRUBIN,INDIRECT 0.6 mg/dL (0.0-0.9); BILIRUBIN,TOTAL 0.8 mg/dL (0.2-2.0); BUN/CREATININE RATIO 18.57; CALCIUM SERUM 9.3 mg/dL (8.4-10.2); CREATININE SERUM 0.7 mg/dL (0.6-1.4); PROTEIN TOTAL SERUM 6.7 g/dL (6.0-8.3)
[2017-01-01 14:02] LABS: URINE SOURCE CLEAN CATCH
[2017-01-01 14:14] LABS: URINE APPEARANCE CLOUDY; URINE BLOOD NEG (NEG); URINE COLOR DK YELLOW; URINE GLUCOSE NEG (NEG); URINE KETONE TRACE (NEG); URINE LEUKOCYTE ESTERASE 1+ (NEG); URINE NITRATE NEG (NEG); URINE PH 6.5 (5-8); URINE PROTEIN TRACE (NEG); URINE SPECIFIC GRAVITY 1.027 (1.003-1.035)
[2017-01-01 14:16] LABS: URINE BACTERIA AUWI NEG (NEGATIVE); URINE SQUAMOUS EPITHELIAL CELL NONE SEEN /[HPF]
[2017-01-01 14:25] LABS: URINE BILIRUBIN NEG (NEG)
[2017-01-01 14:26] LABS: CULTURE INDICATED? NO
== END 2017-01-01 14:15 | disposition home or self-care (01) ==
LOC: CED 09:52
DX: K59.00 Constipation, unspecified (principal); F17.200 Nicotine dependence, unspecified, uncomplicated; Z85.528 Personal history of other malignant neoplasm of kidney
CPT/HCPCS: 74176; 80048; 80076; 81003; 83690; 85025; 99284; J1170

== ENCOUNTER 2017-01-29 21:39 | Inpatient (IN) | payer BC ==
[~2017-01-29] VITALS: Ht 175.3 cm; Wt 44.0 kg
--- NOTE | ~2017-01-29 | CO ---
Unit #: [id number] #: [id number] Patient: JEREMIAH VENEGAS [id number] [address] [place], [place] [address] [id number] I MR#: [id number] NAME: JEREMIAH VENEGAS ROOM: [facility] Age: 46 Sex: M Admission Date: 01/29/2017 : 1970 Attending Physician: Jonel Ramirez M.D. Primary Care Physician: Ebony Lara A.P.R.N. Consultation Date: 01/31/2017 CONSULTATION REPORT PRIMARY CARE PHYSICIAN Jonel Ramirez M.D. REASON FOR EVALUATION Metastatic urothelial cancer, please evaluate. HISTORY OF PRESENT ILLNESS Patient is a 46-year-old gentleman whom we saw with stage IV disease three to four months ago, and it was biopsied on the left lower quadrant and proved to be urothelial carcinoma. He is status post two cycles of aggressive chemotherapy with evidence of progressive disease and failure to thrive. We were requested to evaluate. Looking at his past history, he had an episode of syncope at home, brought in, and had acute respiratory failure, depression, bipolar disorder, anemia of chronic disease, and metastatic urothelial carcinoma as stated above. FAMILY HISTORY Negative for atypical cancer. SOCIAL HISTORY Patient lives with a lady who has Power of [employer], and there is a 1-year-old child that they have decided to bring up together according to the lady. He was a heavy smoker and currently is a nonsmoker. CHRONIC MEDICATIONS 1. Zofran. 2. Percocet. 3. Zoloft. 4. Seroquel. 5. Protonix. ALLERGIES No known allergies. REVIEW OF SYSTEMS Very extensive, mainly unable to eat, severe constipation, tiredness, weakness, inability to ambulate at all and essentially bedridden, and chronic active pain. Otherwise, six or eight systems were within normal limits. PHYSICAL EXAMINATION GENERAL: Severely emaciated gentleman with severe muscle atrophy. Unit #: [id number] #: [id number] Patient: JEREMIAH VENEGAS LYMPHATICS: No supraclavicular, axillary, or groin nodes. LUNGS: Crackles. A few rales on the left side. CARDIOVASCULAR: Distant S1 and S2. ABDOMEN: There is a new nodule just below the umbilicus, and the left lower quadrant mass lesion is enlarging. LOWER EXTREMITIES: There is extreme atrophy of the muscles. IMPRESSION AND PLAN This 46-year-old gentleman who was diagnosed with stage IV urothelial carcinoma, status post two cycles of aggressive chemotherapy, with complete failure to thrive and poor performance status, presented after syncope. Today, I had a chance to interview him and his lady who has the Power of [employer] both together in the room. We went over all the findings, prognosis, and value of continuing aggressive measures versus value of supportive care, [facility], and comfort care, and there was a unanimous decision from both of them to be a Do Not Resuscitate and to do supportive care only. So I am going to call [facility] and will inform the primary care physicians of this decision. Dictated by... Joe Ford M.D. MAYO/reji TD: 01/31/2017 21:03 JOB #: [id number] CONSULTATION REPORT Page 1 of 1 X Joe Ford MD X CONSULTATION REPORT
--- NOTE | ~2017-01-29 | CR72 ---
[facility] A Service of [facility] RADIOLOGY TEXT RESULTS PATIENT: JEREMIAH VENEGAS LOCATION: [place] [address] : 71 UNIT #: [id number] AGE: [address]: Jonel Ramirez MD SEX: M ORDER DR: [id number] [facility] [address] [facility]. [place], [place] [address] [id number] I MR#: [id number] Acc #: [id number] NAME: JEREMIAH VENEGAS : 1970 SEX: M STUDY DATE/TIME: 01/29/2017 22:01 UNIT: [facility] ROOM: [facility] STUDY DESCRIPTION: CR Chest Single View Portable Attending Physician: Jonel Ramirez M.D. Ordering Physician: Stephany Diaz M.D. Primary Care Physician: Ebony Lara A.P.R.N. MEDICAL IMAGING REPORT This report is preliminary unless electronic signature is present EXAM Portable chest, 01/29/2017 HISTORY 46-year-old male with shortness of air and cough beginning tonight. COMPARISON Chest 10/14/2016 FINDINGS 2 views of the chest demonstrate patchy infiltrates in the right mid and lower lung field most suggestive of pneumonia. Left lung clear. No pneumothorax. Right-sided Port-A-Cath. Heart size within normal limits. Mediastinum is slightly prominent compared to the prior study. Pulmonary vasculature unremarkable. IMPRESSION 1. Patchy infiltrates in the right mid and lower lung field most concerning for pneumonia. Followup to resolution recommended. 2. Interval placement of a right-sided Port-A-Cath. 3. Slight mediastinal prominence compared to prior study, nonspecific. Dictated by... Jacky Sigala M.D. THIS IS AN ELECTRONICALLY VERIFIED REPORT Jacky Sigala M.D. at 01/31/2017 10:44 AM NAKITA/kalyan TD: 01/30/2017 21:52 JOB #: [id number] [facility] A Service of [facility] RADIOLOGY TEXT RESULTS PATIENT: JEREMIAH VENEGAS LOCATION: [id number] : 72 UNIT #: [id number] AGE: [address]: Jonel Ramirez MD SEX: M ORDER DR: MEDICAL IMAGING REPORT Page 1 of 1 COPY
--- NOTE | ~2017-01-29 | HP ---
Unit #: [id number] #: [id number] Patient: JEREMIAH NOBLE [id number] [address] [address] [id number] I MR#: [id number] NAME: JEREMIAH NOBLE ROOM: [facility] Age: 46 Sex: M Admission Date: 01/29/2017 : 1970 Attending Physician: Jonel Ramirez M.D. Primary Care Physician: Ebony Lara A.P.R.N. HISTORY AND PHYSICAL ADMISSION DIAGNOSES 1. Acute respiratory failure. 2. Syncope. 3. Metastatic renal cancer. 4. Bipolar disorder. 5. Depression. 6. Hypoglycemia. 7. Anemia of chronic disease. HISTORY OF PRESENT ILLNESS Mr. Noble is a 46-year-old unfortunate gentleman who apparently was diagnosed with renal cancer with mets around two months ago. He apparently had two rounds of chemo, was brought to the emergency room yesterday after he suffered an episode when he passed out. He was found with acute respiratory failure. Initially, was put on BiPAP. However, he improved and currently doing better on the nasal Oxymizer. However, patient was seen by pulmonology and he expressed wishes to be a DNR so he is a DNR. On my interview with the patient and patient's family at the bedside, apparently patient still does want to seek an oncology opinion regarding continuation of the palliative chemo. He denies any chest pain, headache, dizziness, fever, chills, nausea, vomiting, diarrhea or abdominal pain. He was found hypoglycemic. Initially, was given some D50 and he is status post evaluation per endocrinology as well. Currently on D5 normal saline. REVIEW OF SYSTEMS Twelve point review of systems on this patient is basically negative except as above. PAST MEDICAL HISTORY Significant for: 1. History of bipolar disorder. 2. Depression. 3. Leukocytosis. 4. Renal cancer with the mets. SOCIAL HISTORY Apparently he was a heavy smoker. MEDICATIONS Home medications include: 1. Percocet 10's. 2. Zofran. 3. Zoloft. Unit #: [id number] #: [id number] Patient: JEREMIAH NOBLE 4. Protonix. 5. Seroquel. ALLERGIES No known drug allergies. FAMILY HISTORY Unremarkable. PHYSICAL EXAM The patient is an ill-appearing, cachectic 46-year-old gentleman, otherwise in no acute distress. VITAL SIGNS: Currently BP 95/52, heart rate 90, respirations 21, temperature 98.1. HEENT: Head is atraumatic. Pupils equal, round and reactive to light and accommodation. Extraocular muscles intact. Oropharynx clear. NECK: Supple. No masses, no JVD, no bruits. CHEST: Diminished bilaterally. CARDIOVASCULAR: S1, S2, no murmurs. ABDOMEN: Soft, nontender, nondistended. EXTREMITIES: Lower extremities without any cyanosis, clubbing or edema. NEUROLOGICAL: Patient without any focal deficits. LABS AND DIAGNOSTICS Chemistry significant for BUN and creatinine 39 and 0.4. Initial blood glucose again 44. Since then, its come up to 140s. K of 3.1. H and H 7.9 and 23.7, white count 4.4. Platelets 101. ASSESSMENT AND PLAN 1. Questionable syncope, most probably secondary to acute respiratory failure. 2. Pneumonia versus COPD exacerbation. Patient was started on the IV antibiotics per pulmonology. Continue bronchodilators. Follow up on chest x-ray. 3. Metastatic renal cancer, status post chemo x2. Follow up with the oncology regarding (1) benefits of palliative chemo at this point. Question comfort care and hospice but, again, will defer to oncology. 4. History of bipolar disorder. 5. Depression. 6. Anemia of chronic disease. 7. Hypoglycemia. Continue fluids with D5. 8. DNR status. 9. GI and DVT prophylaxis. PPI and Lovenox. 10. Hypokalemia, replace per protocol. Dictated by Renetta Rangel/kayla TD: 01/31/2017 05:37 JOB #: [id number] Unit #: [id number] #: [id number] Patient: JEREMIAH NOBLE HISTORY AND PHYSICAL Page 1 of 1 X Jonel Ramirez MD HISTORY AND PHYSICAL
--- NOTE | ~2017-01-29 | A ---
[facility] Nutrition Therapy DATE: 01/31/17 Patient: JEREMIAH VENEGAS Physician: ANÍBAL Address: [address] Room/Bed: [address], Zip: [place] [phone] Admit Date: 01/29/17 Date of : [birth year] Height: 5 9 Weight: 98 44.5 NUTRITIONAL ASSESSMENT: REASON: PT SEEN FOR LOW BMI + ONE NUTRITION RISK PT RE: POOR PO INTAKE, ALSO CONSULT RECEIVED PT IS 46 Y.O. MALE ADMITTED FOR RESPIRATORY FAILURE PMH: BIPLAR DISORDER, METASTATIC RENAL CA (DIAGNOSED 2 MONTHS AGO) S/P CHEMOTHERAPY, ?COPD, DEPRESSION Anthropometrics: 5'9", WT: 94-98# (43-45 KG), BMI: 13.9-14.5, 59%IBW-61%IBW Labs: BUN: 25, CREAT: 0.3, ALB: 2.0, MG+:1.5, K+:3.3, NA+:134 Meds: LEVOPHED, MIRALAX, PROTONIC, ZOFRAN, KCL, IV LEVAQUIN, NACL I/O & Bowel function: 3950/1552 Skin Integrity: NO KNOWN SKIN ISSUES Estimated Nutrition Needs: INCREASED NEEDS 2' PT UNDERWEIGHT, WEIGHT LOSS NOTED, PMH-CANCER Assessment: CHART REVIEWED AND EVENTS NOTED. PT SEEN FOR LOW BMI + POOR PO INTAKE, ALSO CONSULT RECEIVED. RD ATTEMPTED TO COMMUNICATE W/PT THIS AM BUT PT TOO SLEEPY & LETHARGIC. RN REPORTS PT TO BE CONFUSED THIS AM. PER [place] [facility], PT WEIGHED ~138-147# BACK IN OCTOBER 2016, RAPID WEIGHT LOSS NOTED SINCE. NOTES, POOR PROGNOSIS NOTED, ?PALLIATIVE CARE IN FUTURE. RD TO FOLLOW. SEE RECOMMENDATIONS BELOW. Dx: INADEQUATE PROTEIN-ENERGY INTAKE R/T PMH-CANCER, SUSPECTED DECREASE IN APPETITE AEB LOW BMI OF 13.9-14.5, 59-61%IBW, WEIGHT LOSS NOTED. Intervention: 1. REGULAR DIET 2. RD CONSULT 3. ENSURE SHAKES BID Monitoring, Evaluation and Goals: 1. ORAL INTAKE; CONSUME/TOLERATE >50% OF MEALS AND SUPPLEMENTS 2. WEIGHTS; PROMOTE GRADUAL WEIGHT GAIN TOWARDS HEALTHY BMI; PREVENT WEIGHT LOSS 3. LABS; WNL (PETE WNL) MONITOR: -PO INTAKE/APPETITE -WEIGHTS [facility] Nutrition Therapy DATE: 01/31/17 Patient: JEREMIAH VENEGAS Physician: ANÍBAL Address: [address] [place] [address] Room/Bed: [address], Zip: [place] [address] Admit Date: 01/29/17 Date of : [birth year] Height: 5 9 Weight: 98 44.5 -SUPPLEMENT INTAKE (CHANGE?) -LABS Recommendations: 1. CONTINUE CURRENT DIET ORDER ABOVE 2. ADD 6 SMALL MEALS TO CURRENT DIET ORDER TO BETTER FACILITATE PO INTAKE 3. PLEASE ORDER ENSURE SHAKES BID FOR ADDITIONAL PROTOTEIN AND KCAL 4. REPLACY LYTES PRN (K+ & MG+ LOW) 5. PLEASE WEIGH q 3 DAYS FOR MONITORING PURPOSES, PT CLINICALLY UNDERWEIGHT RD WILL F/U PER PROTOCOL PT IS MODERATELY COMPROMISED Respectfully, ÁNGELA HAMM MS, RD, LD [employer] [facility] cc: client file
--- NOTE | ~2017-01-29 | DS ---
Unit #: [id number] #: [id number] Patient: JEREMIAH VENEGAS [id number] [address] [address] [id number] I MR#: [id number] NAME: JEREMIAH VENEGAS ROOM: [facility] Age: 46 Sex: M Admission Date: 01/29/2017 : 1970 Discharge Date: 02/01/2017 Attending Physician: Jonel Ramirez M.D. Primary Care Physician: Ebony Lara A.P.R.N. DISCHARGE SUMMARY DISCHARGE DIAGNOSES 1. Metastatic renal cancer. 2. Comfort care only. DISPOSITION Discharging to Hospice. HISTORY OF PRESENT HOSPITAL STAY/HOSPITAL COURSE Please refer to H and P done by me for initial presentation on this gentleman. He initially basically presented with acute respiratory failure and was intubated, then extubated. Was cared for in the ICU with pressors secondary to sepsis and hypotension. Was seen in consultation by patrol sergeant, Dr. Fallon Gould, along with the primary oncologist, Dr. Ford. After discussing with Dr. Ford, patient was made hospice/comfort care only and today is transitioning to hospice care. Dictated by... Renetta Rangel/reji TD: 02/01/2017 19:42 JOB #: [id number] DISCHARGE SUMMARY Page 1 of 1 X Jonel Ramirez MD X DISCHARGE SUMMARY
--- NOTE | ~2017-01-29 | CR72 ---
[facility] A Service of [facility] RADIOLOGY TEXT RESULTS PATIENT: JEREMIAH VENEGAS LOCATION: [place] [address] : [birth year] UNIT #: [id number] AGE: [address]: Jonel Ramirez MD SEX: M ORDER DR: [id number] [facility] [address] [facility]. [place], [place] [address] [id number] I MR#: [id number] Acc #: [id number] NAME: JEREMIAH VENEGAS : 1970 SEX: M STUDY DATE/TIME: 01/31/2017 5:19 UNIT: [facility] ROOM: [facility] STUDY DESCRIPTION: CR Chest Single View Portable Attending Physician: Jonel Ramirez M.D. Ordering Physician: Lavinia Mortensen M.D. Primary Care Physician: Ebony Lara A.P.R.N. MEDICAL IMAGING REPORT This report is preliminary unless electronic signature is present EXAM Portable chest HISTORY Shortness of air for 2 days. FINDINGS There is increased density in the right base compared to 01/29/2017. This is most likely focal infiltrate and could be secondary to pneumonia. Superimposed atelectasis may also be present in the right base. Hyperinflation of both lungs. Stable prominence of the right hilum. Remainder of the chest is unchanged. Dictated by... Richard Pichardo M.D. THIS IS AN ELECTRONICALLY VERIFIED REPORT Richard Pichardo M.D. at 01/31/2017 10:31 PM KYARA/moustapha TD: 01/31/2017 12:45 JOB #: [id number] MEDICAL IMAGING REPORT Page 1 of 1 COPY
--- NOTE | ~2017-01-29 | CO ---
Unit #: [id number] #: [id number] Patient: JEREMIAH VENEGAS [id number] [address] [address] [id number] I MR#: [id number] NAME: JEREMIAH VENEGAS ROOM: [facility] Age: 46 Sex: M Admission Date: 01/29/2017 : 1970 Attending Physician: Jonel Ramirez M.D. Primary Care Physician: Ebony Lara A.P.R.N. Consultation Date: 01/29/2017 CONSULTATION REPORT CHIEF COMPLAINT Hypoglycemia. Altered mental status. REASON FOR CONSULTATION Critical care management. HISTORY OF PRESENT ILLNESS This patient basically is a 45-year-old male who has a history of metastatic adenocarcinoma and presents with the complaint of altered mental status and shortness of breath. He was found to be hypoxic and hypoglycemic. He was admitted with possible impression of sepsis. I am seeing the patient at the bedside. He is complaining of mild shortness of breath. He is currently awake and alert, but is confused. PAST MEDICAL HISTORY 1. Metastatic cancer. 2. Bipolar disorder. 3. Depression. 4. Likely chronic obstructive pulmonary disease. SOCIAL HISTORY Heavy smoker in the past. Drinks alcohol socially. Used to drink alcohol socially. CURRENT MEDICATIONS As per MAR. Has been reviewed. REVIEW OF SYSTEMS Positive pallor. No edema. No cyanosis or jaundice. The rest is as per history of present illness. The rest of the review of systems has been reviewed and is negative. PHYSICAL EXAMINATION VITALS: Current temperature is 97, pulse 91, blood pressure 102/62. LUNGS: Bilateral air entry. Bilateral mild rhonchi. HEART: S1 plus S2. ABDOMEN: Soft. There are multiple palpable masses. EXTREMITIES: No edema. NEUROLOGIC: Awake, but confused. DIAGNOSTIC STUDIES LABORATORY: Blood gas, pH 7.40, pCO2 40, pO2 86. BUN 39, creatinine 0.4, potassium 3.1, white blood cell count 4, hemoglobin 7, hematocrit 23, platelets 101. Unit #: [id number] #: [id number] Patient: JEREMIAH VENEGAS ASSESSMENT 1. Hypoglycemia. 2. Shock, requiring pressors. 3. Sepsis present on admission. 4. Cachexia. 5. Malignancy. 6. Associated likely chronic obstructive pulmonary disease. PLAN At this point the plan is to continue the patient on broad spectrum IV antibiotics. Continue oxygen, bronchodilator, stress dose steroids already started. The patient will be closely monitored. Please see orders for detailed plan. Thank you very much for this consultation. Will continue to monitor the patient very closely. PROGNOSIS Prognosis is poor. Dictated by... Renetta Rock TD: 01/30/2017 13:56 JOB #: [id number] CONSULTATION REPORT Page 1 of 1 X Lavinia Mortensen MD X CONSULTATION REPORT
[2017-01-29 22:01] LABS: ARTERIAL BLD GAS O2 SATURATION 94.3 % (90.0-100.0); ARTERIAL BLOOD GAS CARBOXY HB 1.6 %sat (0.0-9.0); ARTERIAL BLOOD GAS HCO3 24.8 mmol/L; ARTERIAL BLOOD GAS MET HB 0.7 %sat (0.0-2.0); ARTERIAL BLOOD GAS PCO2 40.1 mmHg (35.0-45.0); ARTERIAL BLOOD GAS PO2 86.1 mmHg (80.0-100)
[2017-01-29 22:02] LABS: ARTERIAL BLOOD GAS ART SITE RIGHT FEMORAL; ARTERIAL BLOOD GAS DELIVERY NON REBREATHER MASK; ARTERIAL DRAW? YES
[2017-01-29 22:54] LABS: BASOPHIL% 0.3 % (0-2.5); EOSINOPHIL% 0.3 % (0.0-7.0); HEMATOCRIT 23.7 % (38.0-50.0); HEMOGLOBIN 7.8 gm/dL (13.0-16.0); LYMPHOCYTE# 1.2 X10e3 (1.0-3.5); LYMPHOCYTE% 13.1 % (17.0-45.0); MEAN CELL VOLUME 81.1 FL (83-96); MEAN CORPUSCULAR HEMOGLOBIN 26.9 PG (28-34); MEAN CORPUSCULAR HGB CONC 33.1 g/dL (30-36); MEAN PLATELET VOLUME 6.8 FL (6.5-11.5); MONOCYTE# 0.1 X10e3 (0-1.0); MONOCYTE% 0.7 % (3.0-12.0); NEUTROPHIL# 8.2 X10e3 (1.5-7.1); NEUTROPHIL% 85.6 % (40-75); PLATELET COUNT 110 X10e3 (140-420); RED BLOOD COUNT 2.92 X10e (3.90-5.60); RED CELL DISTRIBUTION WIDTH 16.5 % (11.0-15.5); WHITE BLOOD COUNT 9.5 X10e3 (4.0-10.5)
[2017-01-29 22:57] LABS: DIFF IND YES
[2017-01-29 23:18] LABS: CALCIUM SERUM 10.4 mg/dL (8.4-10.2); CREATININE SERUM 0.4 mg/dL (0.6-1.4); GLOM FILT RATE Estimated 143.5 mL/min (>60); POTASSIUM 3.1 mmol/L (3.5-5.1)
[2017-01-29 23:32] LABS: ANISOCYTOSIS SL
[2017-01-29 23:35] LABS: PLATELET ESTIMATE DECREASED (NORMAL)
[2017-01-30] MEDS ORDERED: PERCOCET10 PO (03:11)
[2017-01-30] MEDS ORDERED: ZOFRAN PO (03:12)
[2017-01-30] MEDS ORDERED: ZOLOFT100 MG PO (03:13)
[2017-01-30] MEDS ORDERED: PROTONIX PO (03:13)
[2017-01-30] MEDS ORDERED: SEROQUEL100 MG PO (03:14)
[2017-01-30 05:16] LABS: BASOPHIL% 0.2 % (0-2.5); EOSINOPHIL% 0.2 % (0.0-7.0); HEMATOCRIT 23.7 % (38.0-50.0); HEMOGLOBIN 7.9 gm/dL (13.0-16.0); LYMPHOCYTE# 1.1 X10e3 (1.0-3.5); MEAN CELL VOLUME 80.5 FL (83-96); MEAN CORPUSCULAR HEMOGLOBIN 26.8 PG (28-34); MEAN CORPUSCULAR HGB CONC 33.2 g/dL (30-36); MEAN PLATELET VOLUME 6.8 FL (6.5-11.5); MONOCYTE# 0.1 X10e3 (0-1.0); MONOCYTE% 1.3 % (3.0-12.0); NEUTROPHIL# 3.3 X10e3 (1.5-7.1); NEUTROPHIL% 74.3 % (40-75); PLATELET COUNT 101 X10e3 (140-420); RED BLOOD COUNT 2.95 X10e (3.90-5.60); RED CELL DISTRIBUTION WIDTH 16.6 % (11.0-15.5)
[2017-01-30 05:33] LABS: DIFF IND NO; WHITE BLOOD COUNT 4.4 X10e3 (4.0-10.5)
[2017-01-30 05:51] LABS: BUN/CREATININE RATIO 97.5; CALCIUM SERUM 10.2 mg/dL (8.4-10.2); CREATININE SERUM 0.4 mg/dL (0.6-1.4); GLOM FILT RATE Estimated 143.5 mL/min (>60); POTASSIUM 3.1 mmol/L (3.5-5.1)
[2017-01-31 04:17] LABS: ARTERIAL BLD GAS O2 SATURATION 97.2 % (90.0-100.0); ARTERIAL BLOOD GAS CARBOXY HB 0.8 %sat (0.0-9.0); ARTERIAL BLOOD GAS HCO3 22.3 mmol/L; ARTERIAL BLOOD GAS MET HB 1.5 %sat (0.0-2.0); ARTERIAL BLOOD GAS PCO2 31.2 mmHg (35.0-45.0); ARTERIAL BLOOD GAS pH 7.463 (7.350-7.450)
[2017-01-31 04:30] LABS: ARTERIAL BLOOD GAS ALLEN TEST NORMAL; ARTERIAL BLOOD GAS ART SITE RIGHT RADIAL; ARTERIAL BLOOD GAS DELIVERY OXYMIZER; ARTERIAL DRAW? YES
[2017-01-31 06:17] LABS: BASOPHIL% 0.1 % (0-2.5); HEMATOCRIT 18.9 % (38.0-50.0); LYMPHOCYTE# 0.8 X10e3 (1.0-3.5); LYMPHOCYTE% 17.7 % (17.0-45.0); MEAN CELL VOLUME 80.7 FL (83-96); MEAN CORPUSCULAR HEMOGLOBIN 26.4 PG (28-34); MEAN CORPUSCULAR HGB CONC 32.8 g/dL (30-36); MEAN PLATELET VOLUME 6.6 FL (6.5-11.5); MONOCYTE# 0.2 X10e3 (0-1.0); MONOCYTE% 3.7 % (3.0-12.0); NEUTROPHIL# 3.7 X10e3 (1.5-7.1); NEUTROPHIL% 78.5 % (40-75); RED BLOOD COUNT 2.34 X10e (3.90-5.60); RED CELL DISTRIBUTION WIDTH 16.1 % (11.0-15.5); WHITE BLOOD COUNT 4.7 X10e3 (4.0-10.5)
[2017-01-31 06:19] LABS: HEMOGLOBIN 6.2 gm/dL (13.0-16.0); PLATELET COUNT 52 X10e3 (140-420)
[2017-01-31 06:20] LABS: DIFF IND YES
[2017-01-31 07:00] LABS: ANISOCYTOSIS SL; MICROCYTOSIS SL; PLATELET ESTIMATE DECREASED (NORMAL)
[2017-01-31 07:27] LABS: BILIRUBIN,TOTAL 0.7 mg/dL (0.2-2.0); BUN/CREATININE RATIO 83.33; CALCIUM SERUM 9.4 mg/dL (8.4-10.2); CREATININE SERUM 0.3 mg/dL (0.6-1.4); GLOM FILT RATE Estimated 161.5 mL/min (>60); POTASSIUM 3.3 mmol/L (3.5-5.1); PROTEIN TOTAL SERUM 5.5 g/dL (6.0-8.3)
[2017-02-01 10:03] LABS: HEMATOCRIT 22.4 % (38.0-50.0); HEMOGLOBIN 7.5 gm/dL (13.0-16.0); MEAN CELL VOLUME 82.3 FL (83-96); MEAN CORPUSCULAR HEMOGLOBIN 27.5 PG (28-34); MEAN CORPUSCULAR HGB CONC 33.4 g/dL (30-36); MEAN PLATELET VOLUME 7.1 FL (6.5-11.5); RED BLOOD COUNT 2.72 X10e (3.90-5.60); RED CELL DISTRIBUTION WIDTH 16.7 % (11.0-15.5)
[2017-02-01 10:10] LABS: WHITE BLOOD COUNT 8.3 X10e3 (4.0-10.5)
[2017-02-01 10:33] LABS: BLOOD UREA NITROGEN 19 mg/dL (9-23); CALCIUM SERUM 9.3 mg/dL (8.4-10.2); CARBON DIOXIDE 22 mmol/L (22-31); CHLORIDE 106 mmol/L (100-111); GLUCOSE FASTING 82 mg/dL (70-110); MAGNESIUM 1.5 mg/dL (1.6-3.0); PHOSPHOROUS 2.1 mg/dL (2.5-4.6); POTASSIUM 3.2 mmol/L (3.5-5.1); SODIUM 136 mmol/L (135-145)
[2017-02-01 11:00] LABS: BUN/CREATININE RATIO 63.33; CREATININE SERUM <0.3 mg/dL (0.6-1.4); GLOM FILT RATE Estimated >60.0 mL/min (>60)
== END 2017-02-01 17:48 | DRG 871 ==
LOC: CED 21:39 → CICCU3 23:45 → CEDOF 23:45 → CICCU3 23:57 → CEDOF 23:57 → CED 23:57 → CICCU3 01-30 00:45 → CEDOF 01-30 00:45 → CICCU3 02-01 16:40
PROVIDERS: Hospitalist; Internal Medicine; Internal Medicine Pulmonary Disease; Student in an Organized Health Care Education/Training Program
PROC: 5A09357 Assistance with Respiratory Ventilation, Less than 24 Consecutive Hours, Continuous Positive Airway Pressure (ICD-10-PCS; principal; 2017-01-29)
PROC: 30233N1 Transfusion of Nonautologous Red Blood Cells into Peripheral Vein, Percutaneous Approach (ICD-10-PCS; 2017-01-31)
DX: A41.9 Sepsis, unspecified organism (principal); J96.01 Acute respiratory failure with hypoxia; E43 Unspecified severe protein-calorie malnutrition; D61.9 Aplastic anemia, unspecified; C64.2 Malignant neoplasm of left kidney, except renal pelvis; D63.0 Anemia in neoplastic disease; J44.9 Chronic obstructive pulmonary disease, unspecified; E16.2 Hypoglycemia, unspecified; Z51.5 Encounter for palliative care; F31.9 Bipolar disorder, unspecified; Z66 Do not resuscitate; E87.6 Hypokalemia; K59.00 Constipation, unspecified; F17.200 Nicotine dependence, unspecified, uncomplicated
CPT/HCPCS: 36415; 36430; 36600; 71010; 80048; 80053; 80202; 82533; 82803; 82947; 83605; 83735; 84100; 85025; 85027; 86850; 86900; 86901; 86923; 87040; 94640; 94660; 94760; 94761; 96361; 96365; 99285; C9113; J0692; J0833; J1100; J1650; J1956; J2270; J2543; J3370; J3475; P9016

== ENCOUNTER 2017-02-01 17:23 | Inpatient (IN) | payer OTHER ==
[~2017-02-01] VITALS: Ht 175.3 cm; Wt 49.5 kg
--- NOTE | ~2017-02-01 | HP ---
Unit #: [id number] #: [id number] Patient: JEREMIAH VENEGAS [id number] [address] [address] [id number] I MR#: [id number] NAME: JEREMIAH VENEGAS ROOM: 462 Age: 46 Sex: M Admission Date: 02/01/2017 : 1970 Attending Physician: Sherri Gould M.D. Primary Care Physician: Ebony Lara A.P.R.N. HISTORY AND PHYSICAL ADMITTING DIAGNOSIS Comfort care management. HISTORY OF PRESENT ILLNESS This is a very unfortunate, 46-year-old, male with past medical history significant for stage 4 renal cell cancer who presented to the hospital a few days ago with respiratory failure and pneumonia. His condition continued to decline in spite of medical treatment and patient had a lengthy discussion with hospice care regarding goal of care and prognosis. Patient elected to discontinue all treatment and just focus on comfort (1) given his very poor prognosis. Patient currently appears comfortable with morphine, Ativan, and Haldol p.r.n. PAST MEDICAL HISTORY 1. Renal cell cancer. 2. Bipolar disorder. 3. Depression. 4. Anemia of chronic disease. PAST SURGICAL HISTORY Port placement. CURRENT MEDICATIONS 1. Morphine. 2. Ativan. 3. Haldol. 4. Robinul. 5. Percocet. SOCIAL HISTORY Patient is a heavy smoker. No history of alcohol or drug abuse. ALLERGIES No known drug allergies. FAMILY HISTORY Unremarkable. REVIEW OF SYSTEMS Patient currently is comfortable with narcotics and is not complaining of any pain. Unit #: [id number] #: [id number] Patient: JEREMIAH VENEGAS PHYSICAL EXAMINATION GENERAL: The patient is very cachectic and ill appearing. VITAL SIGNS: Blood pressure is 91/61, respiratory rate 12, O2 saturation 92%. HEENT: Head atraumatic and normocephalic. EOMI. NECK: Supple. No JVD. No lymphadenopathy. CHEST: Bilateral coarse rhonchi. HEART: S1 and S2. No murmurs, gallops, or rubs. ABDOMEN: Soft and nontender. Bowel sounds positive. No hepatosplenomegaly. EXTREMITIES: No edema or cyanosis. SKIN: No rashes. FILES SUPERVISOR: Awake, but sleep. He answers questions appropriately when waken up. LABS AND OTHER TESTS None. ASSESSMENT 1. Acute hypoxic respiratory failure. 2. Stage 4 renal cell cancer. 3. Depression. 4. Malnutrition. 5. Bipolar disorder. PLAN 1. Patient will be continued with comfort care (2) including morphine, Ativan, Haldol, and Robinul. 2. Patient is allowed to eat if he desires. 3. No labs or imaging needed. 4. All questions, needs, and concerns were answered to my best ability. Patient is satisfied with his current care at this point. Dictated by Renetta Pena TD: 02/02/2017 14:09 JOB #: [id number] HISTORY AND PHYSICAL Page 1 of 1 X SHERRI NATION MD HISTORY AND PHYSICAL
--- NOTE | ~2017-02-01 | DS ---
Unit #: [id number] #: [id number] Patient: JEREMIAH VENEGAS [id number] [address] [address] [id number] I MR#: [id number] NAME: JEREMIAH VENEGAS ROOM: 462 Age: 46 Sex: M Admission Date: 02/01/2017 : 1970 Discharge Date: 02/02/2017 Attending Physician: Sherri Gould M.D. Primary Care Physician: Ebony Lara A.P.R.N. DISCHARGE SUMMARY REASON FOR 1. Acute hypoxic respiratory failure. 2. Healthcare-associated pneumonia. OTHER CO-MORBIDITIES 1. Malnutrition. 2. Advanced staged renal cell cancer. 3. Bipolar disorder. 4. Depression. BRIEF HOSPITAL COURSE This is a very unfortunate 46-year-old male with past medical history of stage IV renal cell cancer who presented to the hospital with acute hypoxic respiratory failure and pneumonia. The patient was admitted to the intensive care unit, and then his condition continued to decline in spite of aggressive management. Patient met with Hospice and decided to pursue only comfort measurements, which were provided to the patient. Patient was found to be on February 02, 2017 around 9:30 a.m. Patient was pronounced by 2 nurses. Dictated by... Sherri Gould M.D. EA/shane TD: 02/02/2017 15:53 JOB #: [id number] DISCHARGE SUMMARY Page 1 of 1 X SHERRI NATION MD X DISCHARGE SUMMARY
[~2017-02-01 17:23] MED LIST changes: +PERCOCET10 PO; +PROTONIX PO; +ZOFRAN PO
== END 2017-02-02 13:54 | disposition expired | DRG 189 ==
LOC: C4C 17:23 → CICCU3 17:23 → C4C 21:57
DX: J96.01 Acute respiratory failure with hypoxia (principal); J18.9 Pneumonia, unspecified organism; C64.9 Malignant neoplasm of unspecified kidney, except renal pelvis; E46 Unspecified protein-calorie malnutrition; F31.9 Bipolar disorder, unspecified; D63.0 Anemia in neoplastic disease; F17.200 Nicotine dependence, unspecified, uncomplicated; Z51.5 Encounter for palliative care